=== PATIENT | female | born 1960 | race African-American/Black ===

== ENCOUNTER 2019-02-06 08:45 | Emergency (ER) | payer MEDICAID ==
[~2019-02-06] VITALS: Ht 170.2 cm; Wt 90.0 kg
[2019-02-06] MEDS ORDERED: KETOROLAC 60MG/2ML VIAL IM ONE (11:00)
[2019-02-06 11:15] VITALS: BP 158/98
== END 2019-02-06 11:16 | disposition home or self-care (01) ==
LOC: ER 08:45
DX: G89.29 Other chronic pain (principal); M25.562 Pain in left knee; E11.9 Type 2 diabetes mellitus without complications; I10 Essential (primary) hypertension
CPT/HCPCS: 96372; 99283; J1885

== ENCOUNTER 2019-02-17 08:14 | Emergency (ER) | payer MEDICAID ==
[~2019-02-17] VITALS: Ht 172.7 cm; Wt 86.0 kg
[2019-02-17 09:57] VITALS: BP 150/73
== END 2019-02-17 09:49 | disposition home or self-care (01) ==
LOC: ER 08:14
DX: S82.142D Displaced bicondylar fracture of left tibia, subsequent encounter for closed fracture with routine healing (principal); E11.9 Type 2 diabetes mellitus without complications; I10 Essential (primary) hypertension; X58.XXXD Exposure to other specified factors, subsequent encounter
CPT/HCPCS: 73560; 99283

== ENCOUNTER 2019-09-24 09:49 | Emergency (ER) | payer MEDICAID ==
[~2019-09-24] VITALS: Ht 157.5 cm; Wt 89.2 kg
[2019-09-24] MEDS: IBUPROFEN 400MG TABLET PO ONE (10:49)
[2019-09-24 10:53] VITALS: BP 143/91
[2019-09-24] MEDS ORDERED: KETOROLAC 60MG/2ML VIAL IM ONE (11:00)
== END 2019-09-24 12:27 | disposition home or self-care (01) ==
LOC: ER 09:59
DX: S82.142G Displaced bicondylar fracture of left tibia, subsequent encounter for closed fracture with delayed healing (principal); E11.9 Type 2 diabetes mellitus without complications; I10 Essential (primary) hypertension; Y08.89XD Assault by other specified means, subsequent encounter
CPT/HCPCS: 73560; 96372; 99283; J1885; L1830

== ENCOUNTER 2024-08-26 09:17 | Emergency (ER) | payer BC, MEDICAID ==
[~2024-08-26] VITALS: Ht 172.7 cm; Wt 85.0 kg
[2024-08-26 09:20] VITALS: BP 188/97; PULSE 81; RESP 18; TEMP 98.3; O2SAT 97; O2SAT 99
== END 2024-08-26 12:17 | disposition home or self-care (01) ==
LOC: ER 09:17
DX: Z00.00 Encounter for general adult medical examination without abnormal findings (principal); I10 Essential (primary) hypertension; E11.9 Type 2 diabetes mellitus without complications; Z76.0 Encounter for issue of repeat prescription
CPT/HCPCS: 99281